=== PATIENT | male | born 2000 | race Caucasian/White ===

== ENCOUNTER 2021-10-19 21:44 | Emergency (ER) | payer MEDICARE ==
[~2021-10-19] VITALS: Ht 180.3 cm; Wt 136.1 kg
[2021-10-19] MEDS ORDERED: ALBUTEROL SULF 0.083% NEB SOLN 3 ML NEB NEB STA (22:34)
[2021-10-19] MEDS ORDERED: BENZONATATE200 MG PO (22:39)
[2021-10-19] MEDS ORDERED: CEFDINIR300 MG PO (22:39)
[2021-10-19] MEDS ORDERED: ALBUTEROL/IPRATROPIUM 3 ML NEB ONE (22:54)
== END 2021-10-19 23:13 | disposition home or self-care (01) ==
LOC: FSED 22:16
DX: R05.9 Cough, unspecified (principal); J20.9 Acute bronchitis, unspecified
CPT/HCPCS: 83518; 87400; 99283

== ENCOUNTER 2021-11-12 03:59 | Emergency (ER) | payer OTHER ==
[~2021-11-12] VITALS: Ht 185.4 cm; Wt 151.5 kg
[~2021-11-12 03:59] MED LIST: BENZONATATE200 MG PO; CEFDINIR300 MG PO
[2021-11-12] MEDS ORDERED: LIDOCAINE 1% W/EPINEPHRINE 20 ML VIAL INJ STA (04:22)
[2021-11-12] MEDS ORDERED: LIDOCAINE HCL 2% LOCAL 20 ML VIAL INJ STA (04:22)
[2021-11-12] MEDS ORDERED: DOXYCYCLINE HYCLATE TABLET 100 MG TAB PO STA (04:22)
[2021-11-12] MEDS ORDERED: IBUPROFEN200 MG PO ×2 (04:28→05:01)
[2021-11-12] MEDS ORDERED: DOXYCYCLINE HY100 MG PO ×2 (04:28→05:01)
[2021-11-12] MEDS ORDERED: PROBIOTIC & AC1 EACH PO ×2 (04:28→05:01)
[2021-11-12] MEDS ORDERED: CLEOCIN HCL300 MG PO ×2 (04:28→05:01)
[2021-11-12] MEDS ORDERED: ULTRAM 50MG50 MG PO (05:01)
[2021-11-12] MEDS ORDERED: LIDOCAINE HCL 1% LOCAL INJ 20 ML VIAL ONE (05:03)
[2021-11-12] MEDS ORDERED: IBUPROFEN 400 MG TAB ONE (05:03)
[2021-11-12 05:13] VITALS: BP 124/68
[2021-11-12] MEDS ORDERED: Doxycycline IV 100 MG Vial IV ONE (05:14)
[2021-11-12] MEDS ORDERED: IBUPROFEN 400 MG TAB PO ONE (05:15)
== END 2021-11-12 05:13 | disposition home or self-care (01) ==
LOC: FSED 04:22
DX: L02.31 Cutaneous abscess of buttock (principal); L73.2 Hidradenitis suppurativa; L73.9 Follicular disorder, unspecified; L01.02 Bockhart's impetigo
CPT/HCPCS: 10061; 99283; J2001

== ENCOUNTER 2021-12-11 06:19 | Emergency (ER) | payer OTHER ==
[~2021-12-11] VITALS: Ht 180.3 cm; Wt 148.1 kg
[~2021-12-11 06:19] MED LIST changes: +CLEOCIN HCL300 MG PO; +DOXYCYCLINE HY100 MG PO; +IBUPROFEN200 MG PO; +PROBIOTIC & AC1 EACH PO; +ULTRAM 50MG50 MG PO
[2021-12-11] MEDS ORDERED: VENTOLIN HFA18 GM INH (06:46)
[2021-12-11] MEDS ORDERED: AZITHROMYCIN250 MG PO (06:46)
== END 2021-12-11 06:55 | disposition home or self-care (01) ==
LOC: FSED 06:22
DX: R06.02 Shortness of breath (principal); J20.9 Acute bronchitis, unspecified; R05.9 Cough, unspecified; F17.210 Nicotine dependence, cigarettes, uncomplicated
CPT/HCPCS: 99282

== ENCOUNTER 2022-02-28 17:20 | Emergency (ER) | payer OTHER ==
[~2022-02-28] VITALS: Ht 180.3 cm; Wt 151.5 kg
[~2022-02-28 17:20] MED LIST changes: +AZITHROMYCIN250 MG PO; +VENTOLIN HFA18 GM INH
[2022-02-28] MEDS ORDERED: CLEOCIN HCL300 MG PO (18:16)
[2022-02-28] MEDS ORDERED: MUPIROCIN22 GM TOP (18:16)
[2022-02-28] MEDS ORDERED: BACTRIM DS TAB1 EACH PO (18:16)
== END 2022-02-28 18:24 | disposition home or self-care (01) ==
LOC: FSED 17:28
DX: L02.31 Cutaneous abscess of buttock (principal); L73.2 Hidradenitis suppurativa; L73.9 Follicular disorder, unspecified; L01.02 Bockhart's impetigo; F17.200 Nicotine dependence, unspecified, uncomplicated
CPT/HCPCS: 99283

== ENCOUNTER 2022-04-15 10:13 | Emergency (ER) | payer MEDICARE, OTHER ==
[~2022-04-15] VITALS: Ht 180.3 cm; Wt 145.1 kg
[~2022-04-15 10:13] MED LIST changes: +BACTRIM DS TAB1 EACH PO; +MUPIROCIN22 GM TOP
[2022-04-15] MEDS ORDERED: IBUPROFEN600 MG PO (11:19)
[2022-04-15 11:23] VITALS: BP 127/74
== END 2022-04-15 11:23 | disposition home or self-care (01) ==
LOC: FSED 10:33
DX: M25.562 Pain in left knee (principal); W01.0XXA Fall on same level from slipping, tripping and stumbling without subsequent striking against object, initial encounter; Y92.89 Other specified places as the place of occurrence of the external cause; E66.9 Obesity, unspecified
CPT/HCPCS: 36415; 82948; 99282

== ENCOUNTER 2022-05-10 00:40 | Emergency (ER) | payer OTHER ==
[~2022-05-10] VITALS: Ht 180.3 cm; Wt 145.1 kg
[~2022-05-10 00:40] MED LIST changes: +IBUPROFEN600 MG PO
[2022-05-10] MEDS ORDERED: CEPHALEXIN500 MG PO (02:50)
[2022-05-10] MEDS ORDERED: IBUPROFEN800 MG PO (02:51)
== END 2022-05-10 03:05 | disposition home or self-care (01) ==
LOC: FSED 01:00
DX: S61.210A Laceration without foreign body of right index finger without damage to nail, initial encounter (principal); W26.8XXA Contact with other sharp object(s), not elsewhere classified, initial encounter; Y92.89 Other specified places as the place of occurrence of the external cause
CPT/HCPCS: 99283